=== PATIENT | female | born 1960 | race Caucasian/White ===

== ENCOUNTER 2016-11-13 21:15 | Emergency (ER) | payer BC ==
[2016-11-13] MEDS ORDERED: LACTATED RINGERS 1,000 ML ONE ×2 (21:38→23:05)
[2016-11-13 22:04] LABS: ABSOLUTE NEUTROPHIL COUNT 4.9 K/mm3 (1.8-7.7); BASO % 0.5 % (0.2-1.0); EOS # 0.6 (0.0-0.5); EOS % 6.9 % (0.9-2.9); HEMATOCRIT 40.6 % (37.0-47.0); HEMOGLOBIN 13.4 gm/l (12.0-16.0); IMM NEUT% 0.2 % (0-1); LYMPH # 2.2 (1.0-4.8); LYMPH % 26.3 % (15-45); MEAN CELL VOLUME 86.6 fl (81.0-99.0); MEAN CORPUSCULAR HEMOGLOBIN 28.6 pg (27.0-31.0); MEAN PLATELET VOLUME 8.7 fl (7.4-10.4); MONO # 0.7 (0.0-0.8); MONO % 8.1 % (4-12); PLATELET COUNT 229 K/mm3 (130-400); RED CELL DISTRIBUTION WIDTH 13.4 % (11.5-14.5)
[2016-11-13 22:08] LABS: URINE BILIRUBIN NEGATIVE (NEGATIVE); URINE BLOOD NEGATIVE (NEGATIVE); URINE GLUCOSE (UA) NEGATIVE (NEGATIVE); URINE LEUKOCYTE ESTERASE NEGATIVE (NEGATIVE); URINE NITRITE NEGATIVE (NEGATIVE); URINE PROTEIN NEGATIVE (NEGATIVE); URINE UROBILINOGEN NORMAL (0-1 mg/dl)
[2016-11-13 22:11] LABS: URINE APPEARANCE CLEAR; URINE COLOR YELLOW
[2016-11-13 22:16] LABS: ALB/GLOB RATIO 1.6 (>1.0); CALCIUM 9.5 mg/dL (8.6-10.3)
[2016-11-13] MEDS ORDERED: ONDANSETRON 4 MG/2ML 2 ML VIAL ONE (23:05)
== END 2016-11-14 01:24 | disposition home or self-care (01) ==
LOC: ED 21:15
DX: R55 Syncope and collapse (principal); R11.2 Nausea with vomiting, unspecified; I45.10 Unspecified right bundle-branch block
CPT/HCPCS: 85025; 80053; 83735; 81003; 84484; 99284 ×2; 96374; 96361; 93226; 93225; 93005; J2405; J7120 ×2